=== PATIENT | female | born 1970 | race Two or more races ===

== ENCOUNTER → 2016-05-03 | Outpatient (CLI) | payer BC ==
--- NOTE | 2016-05-03 14:32 | RAD ---
DATE: 05/03/2016. EXAM: DIGITAL DIAGNOSTIC BILATERAL. HISTORY: Clinical breast exam revealed palpable foci inferolaterally, inferomedially, and superomedially on the right, and superomedially on the left. The patient cannot identify a palpable focus. COMPARISON: 12/15/2010. This study was interpreted with the benefit of Computerized Aided Detection (CAD). FINDINGS: The breast parenchyma is primarily fatty replaced. There are no suspicious masses, microcalcifications or architectural distortion. A small residual parenchymal density superolaterally on the right has stable correlates. Scattered calcifications are benign. There is no suspicious mammographic correlate for a palpable focus. BI-RADS CATEGORY: 2 BENIGN FINDING(S). RECOMMENDED FOLLOW-UP: 12M 12 MONTH FOLLOW-UP. Recommend ongoing clinical follow-up of palpable foci, with sonographic reassessment if there is a specific region of concern. PQRS compliance statement: Patient information was entered into a reminder system with a target due date 05/03/2017 for the next mammogram. Mammography is a sensitive method for finding small breast cancers, but it does not detect them all and is not a substitute for careful clinical examination. A negative mammogram does not negate a clinically suspicious finding and should not result in delay in biopsying a clinically suspicious abnormality. "Our facility is accredited by the [employer] Mammography [employer]."
== END | disposition home or self-care (01) ==
LOC: MAMMO 13:30
PROVIDERS: ATTEND Family Medicine
DX: R92.8 Other abnormal and inconclusive findings on diagnostic imaging of breast (principal)
CPT/HCPCS: G0204; 77066

== ENCOUNTER → 2017-06-11 | Outpatient (CLI) | payer BC | END | disposition home or self-care (01) | LOC: MAMMO 08:42 | DX: Z12.31 Encounter for screening mammogram for malignant neoplasm of breast (principal) | CPT/HCPCS: 77067 ==

== ENCOUNTER → 2018-10-02 | Outpatient (CLI) | payer OTHER ==
--- NOTE | 2018-10-03 11:04 | RAD ---
EXAM: DIGITAL SCREEN BILAT W/CAD HISTORY: routine screening evaluation. COMPARISON: 06/11/2017, 05/03/2016, 09/30/2014 Bilateral full field craniocaudal and mediolateral oblique images were obtained using digital technique. This study was interpreted with the benefit of Computerized Aided Detection (CAD). Breast Density: The breast parenchyma is primarily fatty replaced. Breast parenchyma level density A. FINDINGS: Benign calcifications are present. No suspicious masses, microcalcifications or architectural distortion is present to suggest malignancy in either breast. The visualized axillae are unremarkable. IMPRESSION: No mammographic evidence of malignancy. BI-RADS CATEGORY: 2 BENIGN FINDING(S) RECOMMENDED FOLLOW-UP: 12M 12 MONTH FOLLOW-UP Annual screening mammography is recommended, unless clinically indicated sooner based on symptoms or change in physical exam. PQRS compliance statement: Patient information was entered into a reminder system with a target due date for the next mammogram. Mammography is a sensitive method for finding small breast cancers, but it does not detect them all and is not a substitute for careful clinical examination. A negative mammogram does not negate a clinically suspicious finding and should not result in delay in biopsying a clinically suspicious abnormality. "Our facility is accredited by the [employer] Mammography [employer]." MTDD
== END | disposition home or self-care (01) ==
LOC: MAMMO 14:04
PROVIDERS: ATTEND Family Medicine
DX: Z12.31 Encounter for screening mammogram for malignant neoplasm of breast (principal); N64.89 Other specified disorders of breast
CPT/HCPCS: 77067

== ENCOUNTER → 2019-11-20 | Outpatient (CLI) | payer BC ==
[~2019-11-20] MED LIST: BARIUM SULFATE 40% (APPLE) 148 GM PWD. PO ONE
--- NOTE | 2019-11-20 17:20 | RAD ---
PROCEDURE: VIDEO SWALLOW STUDY CLINICAL INDICATION / HISTORY: Reason: DYSPHAGIA/ 1.7 MIN FLUORO / Spl. Instructions: / History: . TECHNIQUE: Real-time fluoroscopic imaging examination was performed in conjunction with speech therapy. The patient was administered barium labeled thin liquids, pudding, and solid (including mixed consistency) consistency compounds. FLUOROSCOPY TIME: 4.7 minutes. Number of Images: 1 COMPARISON: None FINDINGS: The patient exhibited normal oral control. There was free spill of thin liquids, pudding consistency compounds into the vallecula and piriform sinus. No flash penetration was observed with any of the tested consistency compounds. No definite aspiration was observed. The patient tolerated solid barium label compounds. IMPRESSION: Normal video swallow study. Patient pointed to the region of her hyoid bone and supraglottic larynx as the area of discomfort during swallowing. No evidence of aspiration. Please refer to speech pathology notes for complete details and recommendations. Electronically signed by: Cristina Khoury MD (11/20/2019 5:17 PM) [id number]
== END | disposition home or self-care (01) ==
LOC: RAD 14:51
PROVIDERS: ATTEND Family Medicine
DX: R13.10 Dysphagia, unspecified (principal)
CPT/HCPCS: 74230; 92526-GN; 92611-GN